=== PATIENT | male | born 1965 | race Caucasian/White ===

== ENCOUNTER 2022-02-04 00:16 | Day surgery (SDC) | payer BC, SELFPAY ==
[2022-01-16 14:44] VITALS: BMI 34.4
--- NOTE | 2022-02-01 10:18 | SUR.PREOP ---
Pt taking Sutab for his prep.
[2022-02-04 06:19] VITALS: BP 134/95; PULSE 64; RESP 18; TEMP 36.5; O2SAT 98
[2022-02-04] MEDS: LACTATED RINGERS 1,000 ML 150 ML IV CONT (06:21)
--- NOTE | 2022-02-04 07:23 | WPDANESEPPF ---
Anes - Initial Pre Proc Eval Procedure: Operation Date: 02/04/22 07:30 Proposed Procedures p Screening Colonoscopy - Isidro Diaz MD Date/Time: 02/04/22 07:23 Surgeon: Isidro Diaz MD Pre Op Diagnosis: neoplasm screening, hx of colon polyps Patient Data Age: 56 Gender: M Height: 1.91 m Weight: 120.4 kg Last Vital Signs Temp 97.7 F 02/04/22 06:19 Pulse 64 02/04/22 06:19 Resp 18 02/04/22 06:19 BP 134/95 H 02/04/22 06:19 Pulse Ox 98 02/04/22 06:19 O2 Del Method Room Air 02/04/22 06:19 Allergies Allergy/AdvReac Type Severity Reaction Status Date / Time No Known Allergies Allergy Mild Verified 02/04/22 06:17 Home Medications Medication Instructions Recorded Confirmed Type amlodipine 10 mg tablet 1 tablet PO DAILY 01/16/22 02/04/22 History candesartan 32 1 tablet PO DAILY 01/16/22 02/04/22 History mg-hydrochlorothiazide 25 mg tablet metoprolol tartrate 50 mg tablet 1 tablet PO DAILY 01/16/22 02/04/22 History potassium chloride 10 mEq 1 tablet PO DAILY 01/16/22 02/04/22 History tablet,extended release(part/cryst) rosuvastatin 40 mg tablet 1 tablet PO DAILY 01/16/22 02/04/22 History spironolactone 25 mg tablet 25 mg PO DAILY 01/16/22 02/04/22 History tadalafil 20 mg tablet 1 tablet PO PRN 01/16/22 02/04/22 History Patient hx anesthesia problems: none Family hx anesthesia problems: none Results Review: All pre-operative results and documents have been reviewed as part of the pre-operative evaluation. [facility] Social History Social History Smoking packs per day: 2 Smoking cigarettes per day: 40.0 Years smoked: 20 Smoking pack-years: 40.00 Smoking status: Former smoker Alcohol intake: never Alcohol use details: socially Substance use: never Substance use type: does not use Living arrangements: with family Spiritual care concerns: No Anes - Eval Final PreProcedure Day of Procedure 02/04/22 07:23 Patient weight: obese Heart: regular rate and rhythm Lungs: clear to auscultation Airway: Mallampati scale class II Neurological: alert and oriented Last oral intake: >/= 8 hours ASA classification: III Emergent: no Anesthetic plan: proceed Anesthesia type and monitoring: general GIVS and standard monitoring Results Review: All pre-operative results and documents have been reviewed as part of the pre-operative evaluation. Informed Consent: The patient's anesthetic plan and its attendant risks and benefits were discussed with the patient/family/POA. Questions were solicited and answers provided to the satisfaction of the patient/family/POA.
--- NOTE | 2022-02-04 07:49 | PM.IMHP ---
H&P: HPI History of Present Illness Date/Time: 02/04/22 07:49 Chief Complaint: Neoplasia screening. Narrative: This is a 56-year-old white male patient presents for screening colonoscopy. Patient's current weight appetite and bowel movements are normal. He denies abdominal pain. He has had no bleeding. Patient has a prior colonoscopy 2015 that revealed an adenomatous colon polyp. Patient reports that he recently has had increasing constipation. Currently takes Metamucil which has failed to totally alleviate his symptoms. Patient denies any bleeding. His weight remains stable. Family history is noncontributory. Review of Systems Review of Systems: Review of systems noncontributory. [facility] Social History Social History Smoking packs per day: 2 Smoking cigarettes per day: 40.0 Years smoked: 20 Smoking pack-years: 40.00 Smoking status: Former smoker Alcohol intake: never Alcohol use details: socially Substance use: never Substance use type: does not use Living arrangements: with family Spiritual care concerns: No Meds Home Medications and Allergies Home Medications Medication Instructions Recorded Confirmed Type amlodipine 10 mg tablet 1 tablet PO DAILY 01/16/22 02/04/22 History candesartan 32 1 tablet PO DAILY 01/16/22 02/04/22 History mg-hydrochlorothiazide 25 mg tablet metoprolol tartrate 50 mg tablet 1 tablet PO DAILY 01/16/22 02/04/22 History potassium chloride 10 mEq 1 tablet PO DAILY 01/16/22 02/04/22 History tablet,extended release(part/cryst) rosuvastatin 40 mg tablet 1 tablet PO DAILY 01/16/22 02/04/22 History spironolactone 25 mg tablet 25 mg PO DAILY 01/16/22 02/04/22 History tadalafil 20 mg tablet 1 tablet PO PRN 01/16/22 02/04/22 History Allergies Allergy/AdvReac Type Severity Reaction Status Date / Time No Known Allergies Allergy Mild Verified 02/04/22 06:17 Vital Signs Vital Signs - 24 hr 02/04/22 06:19 Temperature 97.7 F Pulse Rate 64 Respiratory Rate 18 Blood Pressure 134/95 H Pulse Oximetry 98 Oxygen Delivery Room Air Exam Narrative: physical exam reveals patient to be alert. Vital signs stable. HEENT exam is unremarkable. Patient is anicteric. Lungs are clear to auscultation and percussion. Heart is without murmur or extra sounds. Abdomen bowel sounds present soft nontender with no organomegaly. Digital external rectal exam is normal. Assessment and Plan Assessment and plan (1) Encounter for screening colonoscopy: Code(s): Z12.11 - Encounter for screening for malignant neoplasm of colon Status: Acute Assessment and Plan: Patient has a history of adenomatous colon polyp. For this reason screening colonoscopy consider now and at 5 year intervals in the future. (2) Constipation: Code(s): K59.00 - Constipation, unspecified Status: Acute Assessment and Plan: Patient complains of constipation. Is not totally relieve with Metamucil. Would recommend adding MiraLax as needed. Perhaps initially twice a week.
[2022-02-04 07:53] VITALS: BP 111/71; PULSE 60; RESP 15; O2SAT 97
[2022-02-04 08:03] VITALS: BP 135/85; PULSE 58; RESP 18; O2SAT 96
[2022-02-04 08:13] VITALS: BP 131/85; PULSE 53; RESP 19; O2SAT 99
== END 2022-02-04 08:22 | disposition home or self-care (01) ==
PROVIDERS: PCP Family Medicine; Visit Provider Internal Medicine Gastroenterology
PROC: 0DJD8ZZ Inspection of Lower Intestinal Tract, Via Natural or Artificial Opening Endoscopic (ICD-10-PCS; CPT 45378; principal; 2022-02-04 07:30)
DX: Z12.11 Encounter for screening for malignant neoplasm of colon (principal); K57.30 Diverticulosis of large intestine without perforation or abscess without bleeding; K64.8 Other hemorrhoids; K59.00 Constipation, unspecified; Z86.010 Personal history of colon polyps; Z87.891 Personal history of nicotine dependence; E66.9 Obesity, unspecified; Z68.33 Body mass index [BMI] 33.0-33.9, adult
CPT/HCPCS: 45378; J2704; J7120

== ENCOUNTER 2023-07-10 08:01 | Outpatient (CLI) | payer OTHER, SELFPAY ==
--- NOTE | ~2023-07-10 | XR_ITS ---
MODIFIED ESOPHAGRAM HISTORY: Dysphagia. TECHNIQUE: Modified barium esophagram was performed on 07/10/2023. I administered fluoroscopy and perfo rmed the exam with speech pathologist. Patient was seated for lateral fluoroscopic imaging for inges tion of thin liquids, pudding, solids and quantified amounts, followed by thin liquids in uncontrolle d amounts. This was recorded on tape. A single fluoroscopic spot image was also recorded. The DAP for this procedure was 1.209 Gycm2. The amount of fluoroscopy time used during this procedure was 0.8 mi nutes. FINDINGS: Oral stage: Adequate function. Pharyngeal stage: Adequate function. Cervical/esophageal stage: Adequate function. IMPRESSION: Patient tolerated regular consistency oral feedings in the upright position. Please hiren elate with speech pathologist findings and specific feeding recommendations. Reviewed, dictated and finalized at location A. SAFETY OFFICER IMPRESSION: Patient tolerated regular consistency oral feedings in the upright position. Please correlate with speech pathologist findings and specific feedi ng recommendations.
--- NOTE | 2023-07-10 09:24 | REHSTMBS ---
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 Franco. Patient reports that he has been having some difficulty swallowing more frequently but not all the time. 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 Patient states that on , he felt that the turkey was hanging up in his throat and possibly going into his airway. He stated that when this occurs, he has to stick his finger down his throat and make himself vomit to rid his throat of the offending food articles. Patient was viewed in the lateral position to the level of C5/C6. He was presented with thin liquid contrast medium per straw, pudding mixed with semi -solid contrast medium, and then several pieces of nic crackers and several pieces of fruit cocktail, both coated with the semi-solid mixture. Patient elicited quick swallows with no evidence of penetration/aspiration and with no significant residue in the throat after swallowing. Results indicate this patient's swallowing skills are within normal limits. He was instructed to take small bites and sips, chew thoroughly, and alternate solids and liquids. He was also instructed in the use of head flexion to assist with movement of material through the pharynx. He voiced understanding of recommendations. Additionally, patient may benefit from a GI referral to further assess his esophageal issues and possible GERD although he states he no longer suffers from GERD since quitting the welding job. No further Speech Therapy is indicated. Thank you for this referral.
== END 2023-07-10 08:02 | disposition home or self-care (01) ==
PROVIDERS: PCP Family Medicine; Visit Provider Otolaryngology
DX: R13.10 Dysphagia, unspecified (principal)
CPT/HCPCS: 92611

== ENCOUNTER 2023-07-21 07:52 | Outpatient (CLI) | payer OTHER, SELFPAY ==
--- NOTE | ~2023-07-21 | CT_ITS ---
CT scan of the Neck Technique: 2.5 mm axial scans were obtained through the neck after intravenous administration of 75 c c Omnipaque 350. Coronal and sagittal reconstructions of the neck were obtained. Dose reduction techn ique was used on this scan by utilizing automated exposure control and iterative reconstruction techn ique. The dose-length product (DLP) was 672.27 mGy-cm. Clinical History: Sialoadenitis Findings: There is no evidence of any significant cervical lymphadenopathy. Several small, nonenlarged jugulo- digastric and posterior cervical lymph nodes are noted bilaterally. Parapharyngeal spaces appear norm al bilaterally. The parotid and submandibular glands appear normal. The pharyngeal mucosal spaces appear normal. No soft tissue masses are seen in the neck. The thyroid gland appears normal. Images of the lung apices reveal no abnormalities. Impression: No significant abnormalities noted. Reviewed, dictated and finalized at [facility]. IC POLICY PROFESSOR Impression: No significant abnormalities noted.
[2023-07-21 08:37] LABS: Estimated Glomerular Filt Rate > 60
== END 2023-07-21 07:53 | disposition home or self-care (01) ==
PROVIDERS: PCP Family Medicine; Visit Provider Otolaryngology
DX: K11.20 Sialoadenitis, unspecified (principal)
CPT/HCPCS: 70491; Q9967

== ENCOUNTER 2023-10-01 09:03 | Outpatient (CLI) | payer OTHER, SELFPAY ==
--- NOTE | ~2023-10-01 | US_ITS ---
US abdomen limited INDICATION: Abnormal liver function tests PROCEDURE: Realtime right upper abdominal ultrasound. COMPARISON: No prior studies for comparison. FINDINGS: The pancreas is normal without focal mass or pancreatic ductal dilation. Liver echotexture is increased, consistent with fatty infiltration. There is normal directional flow in the portal ve in. The gallbladder is normal without stones, gallbladder wall thickening or pericholecystic fluid. Comm on bile duct measures 3.5 mm. No sonographic Lopez's sign. IMPRESSION: 1: Fatty infiltration of the liver. Reviewed, dictated and finalized at location B.
== END 2023-10-01 09:04 | disposition home or self-care (01) ==
PROVIDERS: PCP Family Medicine; Visit Provider Family Medicine
DX: R94.5 Abnormal results of liver function studies (principal); K76.0 Fatty (change of) liver, not elsewhere classified
CPT/HCPCS: 76705